=== PATIENT | male | born 1990 | race Two or more races ===

== ENCOUNTER 2019-12-12 20:35 | Emergency (ER) | payer MEDICAID ==
[~2019-12-12] VITALS: Ht 175.3 cm; Wt 84.0 kg
[2019-12-13] MEDS ORDERED: PREDNISONE 20MG TABLET PO ONE
[2019-12-13 00:13] VITALS: BP 111/74
== END 2019-12-13 00:15 | disposition home or self-care (01) ==
LOC: ER 20:35
DX: L29.9 Pruritus, unspecified (principal)
CPT/HCPCS: 99283; J7512

== ENCOUNTER 2021-04-22 07:40 | Emergency (ER) | payer MEDICAID ==
[~2021-04-22] VITALS: Ht 175.3 cm; Wt 77.0 kg
[2021-04-22] MEDS ORDERED: ACETAMINOPHEN WITH CODEINE 300/30MG TABLET PO ONE (08:00)
[2021-04-22 08:40] LABS: BASOPHILS % 0.6 % (0.0-2.0); EOSINOPHILS % 2.2 % (0.0-5.0); HEMATOCRIT. 42.6 % (42.0-52.0); HEMOGLOBIN. 14.3 g/dL (14.0-18.0); MEAN CORPUSCULAR HEMOGLOBIN 28.2 pg (28.0-32.0); MEAN CORPUSCULAR VOLUME 84.1 fL (80.0-94.0); MEAN PLATELET VOLUME 8.5 fl (7.4-10.4); NEUTROPHILS % 64.2 % (40.0-76.0); PLATELET 190 x1000/uL (130-400); RED BLOOD CELL COUNT 5.06 mill/uL (4.7-6.1); RED CELL DISTRIBUTION WIDTH 13.5 % (11.6-14.6)
[2021-04-22 08:43] LABS: CHLORIDE 107 mEq/L (98-107)
[2021-04-22] MEDS ORDERED: TOPUD PO (09:46)
[2021-04-22 11:10] VITALS: BP 110/73
[2021-04-22] MEDS ORDERED: IBUP-2028 PO (11:54)
== END 2021-04-22 11:46 | disposition home or self-care (01) ==
LOC: ER 07:40
DX: R07.2 Precordial pain (principal); M54.2 Cervicalgia
CPT/HCPCS: 36415; 71045; 80053; 84484; 85025; 93005; 99285